=== PATIENT | male | born 1990 | race Caucasian/White ===

== ENCOUNTER 2020-08-09 10:47 | Emergency (ER) | payer SELFPAY ==
[~2020-08-09] VITALS: Ht 172.7 cm; Wt 85.0 kg
[2020-08-09 10:48] VITALS: BP 168/104
== END 2020-08-09 12:21 | disposition left against medical advice (07) ==
LOC: EDBD 10:47 → ER 10:47
DX: G12.21 Amyotrophic lateral sclerosis (principal); F15.10 Other stimulant abuse, uncomplicated
CPT/HCPCS: 99283; A4217; Z7610